=== PATIENT | male | born 1980 | race African-American/Black ===

== ENCOUNTER 2017-03-22 18:03 | Emergency (ER) | payer OTHER ==
[~2017-03-22] VITALS: Ht 190.5 cm; Wt 90.7 kg
[~2017-03-22 18:03] MED LIST: BACTRIM DS TAB1 EACH PO; NOHOMEMEDICATIONS; NORCO 5-325 TA1 EACH PO
[2017-03-22] MEDS ORDERED: NAPROSYN500 MG PO (20:07)
[2017-03-22] MEDS ORDERED: HYDROCODONE-AP1 EAC6 PO (20:07)
[2017-03-22 20:50] VITALS: BP 152/83
== END 2017-03-22 20:09 | disposition home or self-care (01) ==
LOC: ER 18:03
DX: S43.085A Other dislocation of left shoulder joint, initial encounter (principal); X50.1XXA Overexertion from prolonged static or awkward postures, initial encounter; Y93.89 Activity, other specified; Y92.89 Other specified places as the place of occurrence of the external cause; Y99.8 Other external cause status